=== PATIENT | female | born 1990 | race Caucasian/White ===

== ENCOUNTER 2017-08-24 12:48 | Emergency (ER) | payer OTHER ==
[~2017-08-24] VITALS: Ht 162.6 cm; Wt 85.9 kg
[~2017-08-24 12:48] MED LIST: AMITRIPTYLINE H25 MG; AMITRIPTYLINE H25 MG PO; AZITHROMYCIN250 MG PO; CELEXA20 MG PO; CELEXA40 MG PO; CITALOPRAM HBR40 MG; CLEOCIN300 MG PO; CONCERTA18 MG PO; ENDOCET 5-3251 EACH PO; FLAGYL250 MG PO; IMITREX100 MG PO; LOESTRIN 241 TABLET; LOESTRIN 241 TABLET PO; MACROBID100 MG PO; MOTRIN800 MG PO; MUCINEX1200 MG PO; NAPROSYN500 MG PO; NORCO 5/3251 TABLET PO; PEPCID40 MG PO; PREVACID30 MG PO; REGLAN5 MG PO; SUMATRIPTAN SUC50 MG; TOPAMAX25 MG PO; ULTRAM50 MG PO
[2017-08-24] MEDS ORDERED: COLACE100 MG PO (14:12)
[2017-08-24 14:46] VITALS: BP 142/84
== END 2017-08-24 14:45 | disposition home or self-care (01) ==
LOC: EME 12:48
DX: K64.4 Residual hemorrhoidal skin tags (principal)
CPT/HCPCS: 99281; 99283

== ENCOUNTER 2017-10-02 06:48 | Day surgery (SDC) | payer OTHER ==
[~2017-10-02] VITALS: Ht 160 cm; Wt 84.8 kg
[~2017-10-02 06:48] MED LIST changes: +ALLEGRA60 MG PO; +BUSPAR7.5 MG PO; +COLACE100 MG PO; +FLOVENT DISKUS1 DIS2 IH; +LARIN 24 FE 11 EACH PO; +[UNRECOGNIZED DRUG - OTHER] TP
[2017-10-02 07:26] VITALS: BP 123/63
[2017-10-02] MEDS ORDERED: COLACE100 MG PO (10:28)
[2017-10-02] MEDS ORDERED: ANECREAM30 GM TP (10:28)
[2017-10-02] MEDS ORDERED: PERCOCET 5/31 TABLET PO (10:28)
[2017-10-02] MEDS ORDERED: IBUPROFEN600 MG PO (10:28)
[2017-10-02 11:28] VITALS: BP 116/68
[2017-10-02 11:30] VITALS: BP 125/67
[2017-10-02 12:28] VITALS: BP 113/63
[2017-10-02 13:24] VITALS: BP 107/72
== END 2017-10-02 13:35 | disposition home or self-care (01) ==
LOC: SDC 06:48
PROC: 06BY0ZC Excision of Hemorrhoidal Plexus, Open Approach (ICD-10-PCS; principal; 2017-10-02)
DX: K64.4 Residual hemorrhoidal skin tags (principal); F41.9 Anxiety disorder, unspecified; K21.9 Gastro-esophageal reflux disease without esophagitis; Z87.891 Personal history of nicotine dependence; Z88.0 Allergy status to penicillin
CPT/HCPCS: 88304; J0131; J0330; J1100; J1170; J1580; J1885; J2250; J2405; J3010; J7050; S0030

== ENCOUNTER 2017-10-07 23:46 | Emergency (ER) | payer OTHER ==
[~2017-10-07] VITALS: Ht 160 cm; Wt 87.1 kg
[~2017-10-07 23:46] MED LIST changes: +ANECREAM30 GM TP; +IBUPROFEN600 MG PO; +PERCOCET 5/31 TABLET PO
[2017-10-08 03:02] VITALS: BP 122/70
== END 2017-10-08 03:03 | disposition home or self-care (01) ==
LOC: EXP 23:46 → EME 23:46 → EXP 10-08 03:03
DX: G89.18 Other acute postprocedural pain (principal); K62.89 Other specified diseases of anus and rectum; K59.00 Constipation, unspecified; Z87.891 Personal history of nicotine dependence
CPT/HCPCS: 99281; 99284; J3010